=== PATIENT | female | born 1965 | race Caucasian/White ===

== ENCOUNTER → 2019-02-27 | Day surgery (SDC) | payer OTHER | LOC: FASU 06:57 ==

== ENCOUNTER 2021-05-01 11:27 | Day surgery (SDC) | payer OTHER ==
[2021-04-28 09:05] VITALS: BMI 39.9
[2021-05-01] MEDS ORDERED: BUPIVACAINE HCL 100 ML ONE (13:10)
[2021-05-01] MEDS ORDERED: SODIUM CHLORIDE 0.9% P/F 10 ML VIAL IJ ONE (13:10)
[2021-05-01] MEDS ORDERED: MORPHINE SULFATE 10 MG/1 ML *VIAL ONE (13:13)
[2021-05-01] MEDS ORDERED: ONDANSETRON 4 MG/2 ML VIAL IVPUSH PRN (13:50)
[2021-05-01] MEDS ORDERED: oxyCODONE HCL 5 MG TABLET PO PRN (13:50)
[2021-05-01] MEDS ORDERED: PROMETHAZINE HCL 25 MG/1 ML VIAL IVPUSH PRN (13:50)
[2021-05-01] MEDS ORDERED: PROPOFOL 20 ML ONE (13:58)
[2021-05-01] MEDS ORDERED: LIDOCAINE HCL/PF 2% SDV 5ML VIAL ONE (13:58)
[2021-05-01] MEDS ORDERED: MIDAZOLAM HCL 2 MG/2 ML SINGLE DOSE VIAL ONE (13:58)
[2021-05-01] MEDS ORDERED: GLYCOPYRROLATE 0.2 MG/1 ML VIAL ONE ×2 (13:59→14:58)
[2021-05-01] MEDS ORDERED: LACTATED RINGERS SOLUTION 1,000 ML IV SCH (14:00)
[2021-05-01] MEDS ORDERED: ceFAZolin SODIUM 1 GM VIAL ONE (14:15)
[2021-05-01] MEDS ORDERED: SUCCINYLCHOLINE CHLORIDE 200 MG/10 ML SYRINGE ONE (14:15)
[2021-05-01] MEDS ORDERED: DEXAMETHASONE SOD PHOSPHATE 4 MG/1 ML VIAL ONE (14:24)
[2021-05-01] MEDS ORDERED: KETOROLAC TROMETHAMINE 30 MG/1 ML VIAL ONE (14:30)
[2021-05-01] MEDS ORDERED: ROCURONIUM BROMIDE 50 MG/5 ML SYRINGE ONE (14:33)
[2021-05-01] MEDS ORDERED: NEOSTIGMINE METHYLSULFATE 0.5 MG/1 ML - 10 ML MDV ONE (14:59)
[2021-05-01] MEDS ORDERED: METOPROLOL TARTRATE 5 MG/5 ML VIAL ONE (15:09)
[2021-05-01] MEDS ORDERED: ONDANSETRON 4 MG/2 ML VIAL ONE (15:32)
[2021-05-01] MEDS ORDERED: HYDROmorphone HCl 2 MG/ML VIAL ONE (15:46)
[2021-05-01] MEDS ORDERED: ACETAMINOPHEN INJECTION 100 ML IVPB ONE (15:51)
[2021-05-01] MEDS ORDERED: HYDROmorphone HCl 2 MG/ML VIAL IVPUSH ONE (15:58)
[2021-05-01] MEDS ORDERED: ACETAMINOPHEN 1000 MG/100 ML VIAL (NON FORMULARY) IVPB ONE (15:59)
[2021-05-01] MEDS ORDERED: ONDANSETRON *ODT* 4 MG TABLET ONE (17:36)
[2021-05-01 18:01] VITALS: BP 135/84; PULSE 80; TEMP 97.8
== END 2021-05-01 18:01 | disposition home or self-care (01) ==
LOC: FASU 11:27
PROVIDERS: ATTEND Orthopaedic Surgery
PROC: 0SBC4ZZ Excision of Right Knee Joint, Percutaneous Endoscopic Approach (ICD-10-PCS; 2021-05-01)
PROC: 0SBC4ZZ Excision of Right Knee Joint, Percutaneous Endoscopic Approach (ICD-10-PCS; 2021-05-01)
PROC: 0SNCXZZ Release Right Knee Joint, External Approach (ICD-10-PCS; 2021-05-01)
PROC: 0SBC4ZZ Excision of Right Knee Joint, Percutaneous Endoscopic Approach (ICD-10-PCS; principal; 2021-05-01 14:27)
DX: S83.241A Other tear of medial meniscus, current injury, right knee, initial encounter (principal); S83.281A Other tear of lateral meniscus, current injury, right knee, initial encounter; M25.661 Stiffness of right knee, not elsewhere classified; M94.261 Chondromalacia, right knee; M25.861 Other specified joint disorders, right knee; M67.261 Synovial hypertrophy, not elsewhere classified, right lower leg; M23.8X1 Other internal derangements of right knee; X58.XXXA Exposure to other specified factors, initial encounter; Y93.9 Activity, unspecified; Y92.9 Unspecified place or not applicable
CPT/HCPCS: 29880; G0289; 94760; J0131; Q0162